=== PATIENT | male | born 1980 | race Hispanic/Latino ===

== ENCOUNTER 2018-04-11 10:23 | Emergency (ER) | payer BC ==
[2018-04-11] MEDS ORDERED: ONDANSETRON HCL 4 MG/2 ML VIAL ONE (10:47)
[2018-04-11] MEDS ORDERED: SODIUM CHLORIDE 0.9% 1000ML 1,000 ML IV ONE (10:47)
[2018-04-11 11:12] LABS: BASOPHILS % (AUTO) 0.7 % (0.0-5.0); EOSINOPHILS % (AUTO) 1.1 % (0.0-8.0); HEMATOCRIT 42.2 % (42-54); LYMPHOCYTES % (AUTO) 12.6 % (21.0-51.0); MEAN CORPUSCULAR HEMOGLOBIN 31.2 pg (27.0-33.0); MEAN CORPUSCULAR HGB CONC 35.4 g/dL (32.0-36.0); MEAN CORPUSCULAR VOLUME 88.3 fL (79-99); MONOCYTES % (AUTO) 4.6 % (3.0-13.0); PLATELET COUNT (AUTO) 191 K/uL (130-400); RED BLOOD CELL COUNT(AUTO) 4.78 MIL/uL (4.50-6.20); RED CELL DISTRIBUTION WIDTH 13.6 % (11.0-15.5)
[2018-04-11 11:20] LABS: CREATININE 0.9 mg/dL (0.5-1.5); POTASSIUM 4.2 mmol/L (3.5-5.1)
[2018-04-11 11:25] LABS: ALBUMIN 3.7 g/dL (3.5-5.0); BILIRUBIN,DIRECT 0.1 mg/dL (0.0-0.3); BILIRUBIN,TOTAL 0.3 mg/dL (0.2-1.0); TOTAL PROTEIN, SERUM 7.3 g/dL (6.0-8.3)
[2018-04-11 11:29] LABS: AMPHET/METH SCREEN,URINE NEGATIVE (NEGATIVE); BARBITURATE SCREEN, URINE NEGATIVE (NEGATIVE); BENZODIAZEPINES SCREEN,URINE NEGATIVE (NEGATIVE); CANNABINOID SCREEN,URINE NEGATIVE (NEGATIVE); COCAINE SCREEN,URINE NEGATIVE (NEGATIVE); OPIATE SCREEN,URINE NEGATIVE (NEGATIVE); PHENCYCLIDINE SCREEN,URINE NEGATIVE (NEGATIVE)
[2018-04-11 11:33] LABS: B-TYPE NATRIURETIC PEPTIDE 14 pg/mL (0-100)
== END 2018-04-11 13:09 | disposition home or self-care (01) ==
LOC: EDH 10:23
DX: R42 Dizziness and giddiness (principal); R53.1 Weakness; R11.0 Nausea; Z88.0 Allergy status to penicillin
CPT/HCPCS: 36415; 80048; 80076; 80305; 83880; 84484; 85025; 93005; 96361; 96374; 99285; J2405; J7030

== ENCOUNTER → 2025-06-23 | Outpatient (CLI) | payer BC ==
--- NOTE | 2025-06-23 13:06 | HMCIMG ---
Exam Type: SCOLIOSIS 1VW Clinical Information: Unequal limb length (acquired), unspecified site Comparison: None Findings: The entire spine is well visualized. There is no significant curvature. All pedicles and spinous processes are intact. No fracture or bony lesions are identified. The disc spaces are normal. The visualized soft tissues are unremarkable. IMPRESSION: No scoliosis. No acute pathology.
--- NOTE | 2025-06-23 13:08 | HMCIMG ---
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 There is straightening consistent with spasm. The lateral flexion and extension views demonstrate no abnormal motion. There are spondylitic changes and degenerative changes of the facet joints. History loss of disc height at L5-S1. The remaining intervertebral disc spaces are maintained.. The facet joints are preserved without significant degenerative changes There is mild osteopenia.. Impression: No abnormal motion on flexion-extension lateral views. There is disc disease with loss of disc height at L5-S1.
== END | disposition home or self-care (01) ==
LOC: RAH 10:53
PROVIDERS: ATTEND Physical Medicine & Rehabilitation
DX: M47.817 Spondylosis without myelopathy or radiculopathy, lumbosacral region (principal); M51.379 Other intervertebral disc degeneration, lumbosacral region without mention of lumbar back pain or lower extremity pain; M99.03 Segmental and somatic dysfunction of lumbar region; M21.70 Unequal limb length (acquired), unspecified site; M46.86 Other specified inflammatory spondylopathies, lumbar region; M85.88 Other specified disorders of bone density and structure, other site
CPT/HCPCS: 72081; 72114